=== PATIENT | male | born 1955 | race Caucasian/White ===

== ENCOUNTER 2017-11-27 07:54 | Day surgery (SDC) | payer MEDICAID, OTHER ==
--- NOTE | 2017-11-27 07:37 | PDHPUP ---
History & Physical Update H&P update statement: This history and physical update is based on an assessment of the patient which was completed after admission or registration (within 24 hours), but prior to the surgery/procedure. H&P update: H&P reviewed & patient examined, no change in patient's condition since H&P completed
[2017-11-27] MEDS ORDERED: ceFAZolin 2 GM/DEXTROSE 100 ML IV ONE (08:07)
[2017-11-27] MEDS ORDERED: LR 1,000 ML IV ONE (08:08)
[2017-11-27] MEDS ORDERED: PROTAMINE SULFATE 50 MG/5 ML VIAL IVP ONE (08:25)
[2017-11-27] MEDS ORDERED: BUPIVACAINE 0.5% 30 ML SDV ONE (08:25)
[2017-11-27] MEDS ORDERED: PAPAVERINE HCL 60 MG/2 ML SDV ONE (08:25)
[2017-11-27] MEDS ORDERED: THROMBIN (BOVINE) 5,000 UNIT VIAL TP ONE (08:27)
[2017-11-27] MEDS ORDERED: THROMBIN (BOVINE) 20,000 UNIT SPRAY TP ONE (08:27)
[2017-11-27] MEDS ORDERED: NS 1,000 ML IV ONE (08:54)
[2017-11-27] MEDS ORDERED: fentaNYL 250 MCG/5 ML INJ ONE (08:55)
[2017-11-27] MEDS ORDERED: PROPOFOL 200 MG/20 ML VIAL ONE (08:55)
[2017-11-27] MEDS ORDERED: ROCURONIUM 50 MG/5 ML VIAL ONE (08:56)
[2017-11-27] MEDS ORDERED: METOCLOPRAMIDE 10 MG/2 ML VIAL ONE (08:56)
[2017-11-27] MEDS ORDERED: LIDOCAINE 2% 100 MG/5 ML SYR ONE (08:56)
[2017-11-27] MEDS ORDERED: RANITIDINE 50 MG/2 ML VIAL ONE (08:56)
--- NOTE | 2017-11-27 08:57 | PDANEPAE ---
ANE Past Medical History - Cardiovascular History Hx Hypertension: Yes Hx Arrhythmias: No Hx Chest Pain: Yes Hx Coronary Artery / Peripheral Vascular Disease: Yes Hx CHF / Valvular Disease: Yes Hx Palpitations: No Cardiovascular History Comment: [place] x 3 - Pulmonary History Hx COPD: No Hx Asthma/Reactive Airway Disease: No Hx Recent Upper Respiratory Infection: No Hx Oxygen in Use at Home: No Hx Sleep Apnea: No - Neurologic History Hx Cerebrovascular Accident: No Hx Seizures: No Hx Dementia: No - Endocrine History Hx Diabetes: No - Renal History Hx Renal Disorders: Yes Renal History Comment: Renal Failure - Liver History Hx Hepatic Disorders: No - Neurological & Psychiatric Hx Hx Neurological and Psychiatric Disorders: Yes Neurological / Psychiatric History Comment: Depression - Cancer History Hx Cancer: Yes Cancer History Comment: Melanoma mole on back - Congenital Disorder History Hx Congenital Disorders: No - GI History Hx Gastrointestinal Disorders: No - Other Health History Other Health History: BPH - Chronic Pain History Chronic Pain: Yes - Surgical History Prior Surgeries: stent placement x 5 - 6 months ago. appendectomy. left wrist. right rotator cuff. hernia repair. cataract surgery ANE Review of Systems Review of Systems: - Exercise capacity METS (RN): 3 METS ANE Patient History - Allergies Allergies/Adverse Reactions: Sulfa (Sulfonamide Antibiotics) Allergy (Verified 11/27/17 08:46) Rash - Home Medications Home Medications: Aspirin 11/27/17 [Last Taken 11/26/17] Atorvastatin Calcium 11/27/17 [Last Taken 11/26/17] Bumex (*) 11/27/17 [Last Taken Unknown] Calcium Carbonate 11/27/17 [Last Taken 3 Months Ago ~08/27/17] Cholecalciferol (Vitamin D3) 11/27/17 [Last Taken 11/26/17] Gabapentin 11/27/17 [Last Taken 11/26/17] Lexapro 11/27/17 [Last Taken 11/26/17] Lisinopril 11/27/17 [Last Taken Unknown] Metolazone 11/27/17 [Last Taken 11/26/17] Nitroglycerin 11/27/17 [Last Taken 3 Months Ago ~08/27/17] Pepcid 11/27/17 [Last Taken 2 Months Ago ~09/26/17] Plavix 11/27/17 [Last Taken 11/26/17] Toprol Xl 11/27/17 [Last Taken Unknown] traMADol 11/27/17 [Last Taken 2 Weeks Ago ~11/13/17] - NPO status NPO Since - Liquids (Date): 11/26/17 NPO Since - Liquids (Time): 21:00 NPO Since - Solids (Date): 11/26/17 NPO Since - Solids (Time): 19:00 - Smoking Hx Smoking Status: Current some day smoker - Family Anes Hx Family Hx Anesthesia Complications: none. ANE Labs/Vital Signs - Labs Result Diagrams: 11/27/17 08:35 - Vital Signs Blood Pressure: 181/80 Heart Rate: 75 Respiratory Rate: 18 O2 Sat (%): 96 Height: 172.72 cm Weight: 92.986 kg ANE Physical Exam - Airway Neck exam: decreased ROM Mallampati Score: Class 3 Mouth exam: poor dentition - Pulmonary Pulmonary: no respiratory distress - Cardiovascular Cardiovascular: regular rate and rhythym - ASA Status ASA Status: III ANE Anesthesia Plan Anesthesia Plan: general endotracheal anesthesia
[2017-11-27] MEDS ORDERED: NALOXONE HCL 0.4 MG/ML INJ IVP PRN (09:30)
[2017-11-27] MEDS ORDERED: fentaNYL 100 MCG/2 ML INJ IVP PRN (09:30)
[2017-11-27] MEDS ORDERED: ALBUTEROL 3 ML DEYVIAL IH PRN (09:30)
[2017-11-27] MEDS ORDERED: ONDANSETRON 4 MG/2 ML VIAL IVP PRN (09:30)
[2017-11-27] MEDS ORDERED: SUGAMMADEX SODIUM 200 MG/2 ML VIAL IVP ONE (10:10)
--- NOTE | 2017-11-27 10:27 | POSTOPPROG ---
Post Op Note Date of Operation: 11/27/17 Surgeon: Rubén Schmitt Needle Punch Operator: Yanna Cardenas Anesthesiologist: Eddie Martinez Anesthesia: GET(General Endotracheal) Pre-op Diagnosis: Renal failure, on HD Post-op Diagnosis: same Procedure: LUE brachiocephalic AVF Findings: good thrill Inf/Abcess present in the surg proc area at time of surgery?: No EBL: Minimal Complications: none
--- NOTE | 2017-11-27 10:28 | POSTANESTH ---
Post Anesthetic Evaluation Cardiovascular Status: Similar to Pre-Op Cond Respiratory Status: Similar to Pre-op Cond. Level of Consciousness/Mental Status: Mildly Sleepy, Arousable Pain Control: Adequate, Prn Tx Ordered Nausea/Vomiting Control: Adequate, Prn Tx Ordered Complications Possibly Related to Anesthesia: None Noted
[2017-11-27 13:13] VITALS: BP 138/65
== END 2017-11-27 13:04 | disposition home or self-care (01) ==
LOC: FSGY 07:54
PROVIDERS: ATTEND Surgery
PROC: 03180ZF Bypass Left Brachial Artery to Lower Arm Vein, Open Approach (ICD-10-PCS; principal; 2017-11-27 09:15)
DX: N18.6 End stage renal disease (principal); Z99.2 Dependence on renal dialysis; I25.10 Atherosclerotic heart disease of native coronary artery without angina pectoris; I25.2 Old myocardial infarction; Z95.5 Presence of coronary angioplasty implant and graft; I12.0 Hypertensive chronic kidney disease with stage 5 chronic kidney disease or end stage renal disease; Z85.820 Personal history of malignant melanoma of skin
CPT/HCPCS: J0690; J1644; J2001; J2440; J2704; J2720; J2765; J2780; J3010

== ENCOUNTER → 2018-04-01 | Outpatient (CLI) | payer MEDICAID | LOC: FIMAGING 12:10 | PROVIDERS: ATTEND Surgery | DX: N18.6 End stage renal disease (principal) ==

== ENCOUNTER 2018-04-02 10:30 | Day surgery (SDC) | payer MEDICAID ==
[2018-04-02] MEDS ORDERED: ceFAZolin 2 GM/DEXTROSE 100 ML IV ONE (11:05)
[2018-04-02] MEDS ORDERED: NS 500 ML IV ONE (11:07)
[2018-04-02 11:24] VITALS: BP 127/55
--- NOTE | 2018-04-02 13:40 | PDHPUP ---
History & Physical Update H&P update statement: This history and physical update is based on an assessment of the patient which was completed after admission or registration (within 24 hours), but prior to the surgery/procedure. 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 Patient has not had HD for 1-2 weeks and refused HD last night, despite nephrology's willingness to make space for him and both of our urging to under go HD. We andrei BMP on 04/01/18. K was wnl. He may be holding some fluid, but labs are ok. Also, patient had US vein mapping of BLEs and has adequate GSV's for DRIL.
[2018-04-02] MEDS ORDERED: PAPAVERINE HCL 60 MG/2 ML SDV ONE (13:53)
[2018-04-02] MEDS ORDERED: THROMBIN (BOVINE) 5,000 UNIT VIAL TP ONE (13:54)
[2018-04-02] MEDS ORDERED: THROMBIN (BOVINE) 20,000 UNIT SPRAY TP ONE ×2 (13:55→14:36)
[2018-04-02] MEDS ORDERED: PROTAMINE SULFATE 50 MG/5 ML VIAL IVP ONE (13:55)
[2018-04-02] MEDS ORDERED: BUPIVACAINE 0.5% 30 ML SDV ONE (13:55)
[2018-04-02] MEDS ORDERED: PROPOFOL 200 MG/20 ML VIAL ONE (14:10)
[2018-04-02] MEDS ORDERED: fentaNYL 100 MCG/2 ML INJ ONE (14:11)
[2018-04-02] MEDS ORDERED: CISATRACURIUM BESYLATE 20 MG/10 ML VIAL IV ONE (14:12)
--- NOTE | 2018-04-02 14:18 | PDANEPAE ---
ANE Past Medical History - Cardiovascular History Hx Hypertension: Yes Hx Arrhythmias: No Hx Chest Pain: Yes Hx Coronary Artery / Peripheral Vascular Disease: Yes Hx CHF / Valvular Disease: Yes Hx Palpitations: No Cardiovascular History Comment: [place] x 3. CABG 2017 - Pulmonary History Hx COPD: No Hx Asthma/Reactive Airway Disease: No Hx Recent Upper Respiratory Infection: No Hx Oxygen in Use at Home: No Hx Sleep Apnea: No Sleep Apnea Screening Result - Last Documented: Positive - Neurologic History Hx Cerebrovascular Accident: No Hx Seizures: No Hx Dementia: No - Endocrine History Hx Diabetes: No - Renal History Hx Renal Disorders: Yes Renal History Comment: Renal Failure. DIALYSIS LD. 03/18/18 - Liver History Hx Hepatic Disorders: No - Neurological & Psychiatric Hx Hx Neurological and Psychiatric Disorders: Yes Neurological / Psychiatric History Comment: Depression - Cancer History Hx Cancer: Yes Cancer History Comment: Melanoma mole on back - Congenital Disorder History Hx Congenital Disorders: No - GI History Hx Gastrointestinal Disorders: No - Other Health History Other Health History: BPH - Chronic Pain History Chronic Pain: Yes - Surgical History Prior Surgeries: CABG - 02/2017. AV FISTULA 06/2017. stent placement. appendectomy. left wrist. right rotator cuff. hernia repair. cataract surgery ANE Review of Systems Review of Systems: - Exercise capacity METS (RN): 4 METS ANE Patient History - Allergies Allergies/Adverse Reactions: Sulfa (Sulfonamide Antibiotics) Allergy (Verified 11/27/17 08:46) Rash - Home Medications Home Medications: Aspirin [Aspirin 325 mg (*)] 325 mg PO DAILY 03/28/18 [Last Taken 03/27/18] Atorvastatin Calcium [Lipitor 40 mg (*)] 40 mg PO HS 03/28/18 [Last Taken 1 Day Ago ~04/01/18] Bumetanide [Bumex (*)] 1 mg PO DAILY 03/28/18 [Last Taken 03/27/18] Calcium Carbonate [Tums 500MG (*)] 500 mg PO Q8H 03/28/18 [Last Taken 03/27/18] Cholecalciferol Vit D3 [Vitamin D3 (*)] 4,000 units PO DAILY 03/28/18 [Last Taken 03/27/18] Clopidogrel Bisulfate [Plavix (*)] 75 mg PO DAILY 03/28/18 [Last Taken 03/27/18] Escitalopram Oxalate [Lexapro] 10 mg PO DAILY 03/28/18 [Last Taken 04/02/18] Famotidine [Pepcid 20 MG (*)] 20 mg PO DAILY 03/28/18 [Last Taken 04/02/18] Gabapentin [Neurontin 100 MG (*)] 100 mg PO DAILY 03/28/18 [Last Taken 1 Day Ago ~04/01/18] Gabapentin [Neurontin 300 MG (*)] 300 mg PO HS 03/28/18 [Last Taken 1 Day Ago ~ 04/01/18] Hydrocodone/APAP 5/325 [[place] 5/325 (*)] 1 tab PO Q6H PRN 03/28/18 [Last Taken 03/27/18] Lisinopril [Zestril 5 mg (*)] 5 mg PO DAILY 03/28/18 [Last Taken 04/02/18] Metolazone 5 mg PO SA 03/28/18 [Last Taken 03/27/18] Metoprolol Succinate Xr [Toprol Xl 25 mg (*)] 12.5 mg PO BID 03/28/18 [Last Taken 03/27/18] NIFEdipine [Procardia Xl] 30 mg PO DAILY 03/28/18 [Last Taken 03/27/18] Nitroglycerin [Nitrostat 0.4 mg (*)] 0.4 mg SL Q5M PRN 03/28/18 [Last Taken ] guaiFENesin [Mucinex 600 MG (*)] 600 mg PO BID PRN 03/28/18 [Last Taken 04/02/18 ] guaiFENesin/DEXTROMETHORPHAN [Robitussin Dm Oral Liquid (*)] 10 ml PO Q4 PRN [Last Taken 04/02/18] oxyCODONE IR [Oxycodone Ir (*)] 5 mg PO Q6H PRN 03/28/18 [Last Taken 04/02/18] traMADol [Ultram 50 mg (*)] 50 mg PO Q12H PRN 03/28/18 [Last Taken 04/02/18] - NPO status NPO Since - Liquids (Date): 04/02/18 NPO Since - Liquids (Time): 08:00 NPO Since - Solids (Date): 04/01/18 NPO Since - Solids (Time): 22:00 - Smoking Hx Smoking Status: Current some day smoker - Family Anes Hx Family Hx Anesthesia Complications: none. ANE Labs/Vital Signs - Labs Result Diagrams: 04/02/18 14:00 - Vital Signs Blood Pressure: 127/55 Heart Rate: 81 Respiratory Rate: 20 O2 Sat (%): 91 Height: 172.72 cm Weight: 102.058 kg ANE Physical Exam - Airway Neck exam: FROM Mallampati Score: Class 2 Mouth exam: poor dentition - Pulmonary Pulmonary: clear to auscultation - Cardiovascular Cardiovascular: regular rate and rhythym - ASA Status ASA Status: IV ANE Anesthesia Plan Anesthesia Plan: general endotracheal anesthesia
[2018-04-02] MEDS ORDERED: METOPROLOL TARTRATE 25 MG TAB PO ONE ×2 (14:36→15:30)
[2018-04-02] MEDS ORDERED: ASPIRIN 81 MG CHEWABLE TAB PO ONE (14:43)
[2018-04-02] MEDS ORDERED: CLOPIDOGREL BISULFATE 75 MG TAB PO SCH (14:45)
== END 2018-04-02 17:00 | disposition home or self-care (01) ==
LOC: UNDOADMOB 10:30 → F3N 10:30 → FSGY 10:30 → EDSTATUS 12:45 → FSGY 17:00 → UNDODISOB 17:00
PROVIDERS: ATTEND Surgery
DX: T82.898A Other specified complication of vascular prosthetic devices, implants and grafts, initial encounter (principal); N18.6 End stage renal disease; Z91.15 Patient's noncompliance with renal dialysis; I13.2 Hypertensive heart and chronic kidney disease with heart failure and with stage 5 chronic kidney disease, or end stage renal disease; I25.2 Old myocardial infarction; I50.9 Heart failure, unspecified; I25.10 Atherosclerotic heart disease of native coronary artery without angina pectoris; I25.82 Chronic total occlusion of coronary artery; Z85.820 Personal history of malignant melanoma of skin; Z99.2 Dependence on renal dialysis; Z53.29 Procedure and treatment not carried out because of patient's decision for other reasons
CPT/HCPCS: J0690; J1644; J2440; J2704; J2720; J3010

== ENCOUNTER 2018-05-16 12:30 | Inpatient (IN) | payer MEDICAID ==
[2018-05-17] MEDS ORDERED: LR 1,000 ML IV ONE (12:13)
[2018-05-17] MEDS ORDERED: ceFAZolin 2 GM/DEXTROSE 100 ML IV ONE (13:00)
--- NOTE | 2018-05-17 13:10 | PDGENHP ---
History & Physical Chief Complaint: Steal syndrome, Left upper extremity History of Present Illness: Fredo is a 63 y/o M s/p LUE AVF creation in November of 2017. Over the last 2-3 months, he has experienced increased pain in his left arm and hand. He has been using a neck catheter for dialysis. He was scheduled for a DRIL procedure last month, however his case was canceled due to aggressive and inappropriate behavior. Pertinent Past, Social, Family History: Medical history: Acute [place], Heart failure , HTN, ESRD. Surgical history: Eye surgery, LUE AVF, neck catheter placement. Social history: current smoker. Family history: noncontributory Relevant Physical Exam: General: chronically ill appearing male in no acute distress. HEENT: normocephalic, atraumatic, no gross hearing deficits, mmm, PERRLA. Cardiac: RRR. Chest: CTAB. Abdomen: soft, nontender, nondistended. Neurologic: CN 2-12 grossly intact. Psychiatric: appropriate mood and affect. Left upper extremity: AVF with excellent thrill. Diffuse swelling throughout arm, faint radial pulse. Tender to palpation. Cardiorespiratory Assessment: Cardiac: RRR. Chest: CTAB
[2018-05-17] MEDS ORDERED: NS 1,000 ML IV ONE (13:19)
--- NOTE | 2018-05-17 13:21 | PDANEPAE ---
ANE History of Present Illness steal syndrome left hand ANE Past Medical History - Cardiovascular History Hx Hypertension: Yes Hx Arrhythmias: No Hx Chest Pain: Yes Hx Coronary Artery / Peripheral Vascular Disease: Yes Hx CHF / Valvular Disease: Yes Hx Palpitations: No Cardiovascular History Comment: [place] x 3 - Pulmonary History Hx COPD: No Hx Asthma/Reactive Airway Disease: No Hx Recent Upper Respiratory Infection: No Hx Oxygen in Use at Home: No Hx Sleep Apnea: No - Neurologic History Hx Cerebrovascular Accident: No Hx Seizures: No Hx Dementia: No - Endocrine History Hx Diabetes: No Hypothyroid: No Hyperthyroid: No Obesity: mild - Renal History Hx Renal Disorders: Yes Renal History Comment: Renal Failure - Liver History Hx Hepatic Disorders: No - Neurological & Psychiatric Hx Hx Neurological and Psychiatric Disorders: Yes Neurological / Psychiatric History Comment: Depression - Cancer History Hx Cancer: Yes Cancer History Comment: Melanoma mole on back - Congenital Disorder History Hx Congenital Disorders: No - GI History GERD: no Hx Gastrointestinal Disorders: No - Other Health History Other Health History: BPH - Chronic Pain History Chronic Pain: Yes - Surgical History Prior Surgeries: stent placement x 5 - 6 months ago. appendectomy. left wrist. right rotator cuff. hernia repair. cataract surgery ANE Review of Systems Review of systems is: negative Review of Systems: - Exercise capacity METS (RN): 2 METS ANE Patient History - Allergies Allergies/Adverse Reactions: Sulfa (Sulfonamide Antibiotics) Allergy (Verified 11/27/17 08:46) Rash - Home Medications Home Medications: Aspirin [Aspirin 325 mg (*)] 325 mg PO DAILY 03/28/18 [Last Taken 03/27/18] Atorvastatin Calcium [Lipitor 40 mg (*)] 40 mg PO HS 03/28/18 [Last Taken 1 Day Ago ~04/01/18] Bumetanide [Bumex (*)] 1 mg PO DAILY 03/28/18 [Last Taken 03/27/18] Calcium Carbonate [Tums 500MG (*)] 500 mg PO Q8H 03/28/18 [Last Taken 03/27/18] Cholecalciferol Vit D3 [Vitamin D3 (*)] 4,000 units PO DAILY 03/28/18 [Last Taken 03/27/18] Clopidogrel Bisulfate [Plavix (*)] 75 mg PO DAILY 03/28/18 [Last Taken 03/27/18] Escitalopram Oxalate [Lexapro] 10 mg PO DAILY 03/28/18 [Last Taken 04/02/18] Famotidine [Pepcid 20 MG (*)] 20 mg PO DAILY 03/28/18 [Last Taken 04/02/18] Gabapentin [Neurontin 100 MG (*)] 100 mg PO DAILY 03/28/18 [Last Taken 1 Day Ago ~04/01/18] Gabapentin [Neurontin 300 MG (*)] 300 mg PO HS 03/28/18 [Last Taken 1 Day Ago ~ 04/01/18] Hydrocodone/APAP 5/325 [[place] 5/325 (*)] 1 tab PO Q6H PRN 03/28/18 [Last Taken 03/27/18] Lisinopril [Zestril 5 mg (*)] 5 mg PO DAILY 03/28/18 [Last Taken 04/02/18] Metolazone 5 mg PO SA 03/28/18 [Last Taken 03/27/18] Metoprolol Succinate Xr [Toprol Xl 25 mg (*)] 12.5 mg PO BID 03/28/18 [Last Taken 03/27/18] NIFEdipine [Procardia Xl] 30 mg PO DAILY 03/28/18 [Last Taken 03/27/18] Nitroglycerin [Nitrostat 0.4 mg (*)] 0.4 mg SL Q5M PRN 03/28/18 [Last Taken ] guaiFENesin [Mucinex 600 MG (*)] 600 mg PO BID PRN 03/28/18 [Last Taken 04/02/18 ] guaiFENesin/DEXTROMETHORPHAN [Robitussin Dm Oral Liquid (*)] 10 ml PO Q4 PRN [Last Taken 04/02/18] oxyCODONE IR [Oxycodone Ir (*)] 5 mg PO Q6H PRN 03/28/18 [Last Taken 04/02/18] traMADol [Ultram 50 mg (*)] 50 mg PO Q12H PRN 03/28/18 [Last Taken 04/02/18] - NPO status NPO Since - Liquids (Date): 05/17/18 NPO Since - Liquids (Time): 09:00 NPO Since - Solids (Date): 05/16/18 NPO Since - Solids (Time): 23:55 - Anes Hx Anes Hx: no prior problems - Smoking Hx Smoking Status: Current some day smoker - Family Anes Hx Family Anes Hx: none Family Hx Anesthesia Complications: none. ANE Labs/Vital Signs - Labs Result Diagrams: 05/17/18 12:45 05/17/18 12:45 - Vital Signs Blood Pressure: 137/57 Heart Rate: 63 Respiratory Rate: 16 O2 Sat (%): 91 Height: 172.72 cm Weight: 98.43 kg ANE Physical Exam - Airway Neck exam: FROM Mallampati Score: Class 2 Mouth exam: normal dental/mouth exam - Pulmonary Pulmonary: no respiratory distress, clear to auscultation - Cardiovascular Cardiovascular: regular rate and rhythym, no murmur, rub, or gallop - ASA Status ASA Status: IV ANE Anesthesia Plan Anesthesia Plan: general endotracheal anesthesia, GA w LMA, GA with mask
[2018-05-17] MEDS ORDERED: THROMBIN (BOVINE) 20,000 UNIT VIAL TP ONE (13:42)
[2018-05-17] MEDS ORDERED: BUPIVACAINE 0.5% 30 ML SDV ONE (13:43)
[2018-05-17] MEDS ORDERED: THROMBIN (BOVINE) 5,000 UNIT VIAL TP ONE (13:43)
[2018-05-17] MEDS ORDERED: PAPAVERINE HCL 60 MG/2 ML SDV ONE (13:43)
[2018-05-17] MEDS ORDERED: PROTAMINE SULFATE 50 MG/5 ML VIAL IVP ONE (13:43)
[2018-05-17] MEDS ORDERED: fentaNYL 100 MCG/2 ML INJ ONE ×3 (13:50→16:35)
[2018-05-17] MEDS ORDERED: PROPOFOL 200 MG/20 ML VIAL ONE (13:51)
[2018-05-17 14:32] LABS: PLATELET COUNT 294 10^3/uL (150-400)
[2018-05-17] MEDS ORDERED: HYDROmorphONE/DILAUDID 2 MG/ML INJ IVP PRN (14:56)
[2018-05-17] MEDS ORDERED: NALOXONE HCL 0.4 MG/ML INJ IVP PRN (14:56)
--- NOTE | 2018-05-17 14:57 | POSTANESTH ---
Post Anesthetic Evaluation Cardiovascular Status: Normal, Stable Respiratory Status: Normal, Stable Level of Consciousness/Mental Status: Can Participate in Eval Pain Control: Adequate, Prn Tx Ordered Nausea/Vomiting Control: Adequate, Prn Tx Ordered Complications Possibly Related to Anesthesia: None Noted
[2018-05-17] MEDS ORDERED: ONDANSETRON 4 MG/2 ML VIAL ONE (14:59)
--- NOTE | 2018-05-17 15:29 | POSTOPPROG ---
Post Op Note Date of Operation: 05/17/18 Surgeon: Rubén Schmitt Health Service Worker: Juana Anesthesia: GET(General Endotracheal) Pre-op Diagnosis: Steal syndrome Post-op Diagnosis: same Indication: Same, pain Procedure: LUE AVF banding, collateral ligation Findings: +radial pulse, strong thrill Inf/Abcess present in the surg proc area at time of surgery?: No Depth: Superfical (Skin SQ) EBL: Minimal
[2018-05-17] MEDS: fentaNYL 100 MCG/2 ML INJ IVP PRN ×4 (15:33→16:50)
[2018-05-17] MEDS ORDERED: oxyCODONE IR 5 MG TAB PO PRN (15:47)
[2018-05-17] MEDS ORDERED: ONDANSETRON DISINTEGRATING 4 MG TAB PO PRN ×2 (15:48→17:26)
[2018-05-17] MEDS ORDERED: ACETAMINOPHEN 325 MG TAB PO PRN ×2 (15:48→17:26)
[2018-05-17] MEDS ORDERED: HYDROmorphONE/DILAUDID 1 MG/ML INJ IVP PRN (17:26)
[2018-05-17] MEDS ORDERED: ONDANSETRON 4 MG/2 ML VIAL IVP PRN (17:26)
--- NOTE | 2018-05-17 17:56 | GHP ---
[f rep st] HISTORY AND PHYSICAL DATE OF ADMISSION: 05/17/2018 Mr. Tidwell is a 63-year-old gentleman with a history of end-stage renal disease and coronary artery d isease who presents today for an elective revision of his fistula for steal syndrome. He has some no nhealing wounds on his 1st and 2nd fingers of his left hand. His previous surgery was canceled becau se of some inappropriate contact on his part back in March. When I speak to the patient, he is postop, not particularly interested in giving me information, but after a bit of time, admitted pain is reasonably well controlled. His radial pulse is Dopplerable on his left hand. He acknowledges that it sounds like the doctors are uncertain as to why he has end-s tage renal disease. REVIEW OF SYSTEMS: Complete 10-point review of systems conducted and negative except as noted in the HPI. PAST MEDICAL HISTORY: Coronary artery disease and stents, end-stage renal disease. ALLERGIES: Sulfa. HOME MEDICATIONS: 1. Aspirin. 2. Atorvastatin. 3. Bumex. 4. Calcium carbonate. 5. Vitamin D3. 6. Clopidogrel. 7. Escitalopram. 8. Famotidine. 9. Gabapentin. 10. Guaifenesin. 11. Hydrocodone. 12. Lisinopril. 13. Metolazone. 14. Toprol-XL. 15. Nifedipine. 16. Nitroglycerin. 17. Oxycodone. 18. Tramadol. SOCIAL HISTORY: He smokes cigarettes, does not drink alcohol. Lives in [place]. Declines to tell me what he did for work. FAMILY HISTORY: Reviewed and unremarkable. PHYSICAL EXAM: VITAL SIGNS: Temp afebrile, blood pressure 124/46, pulse 66, breathing 14 times a mi nute, 82% on room air, refuses to wear oxygen. GENERAL: No acute distress. HEENT: There is some d ried blood in his oropharynx. Mucous membranes are moist. NECK: Supple without lymphadenopathy or JVD. LUNGS: Clear to auscultation bilaterally. Prolonged expiratory phase. HEART: S1, S2, withou t murmurs. ABDOMEN: Soft, nontender, nondistended. LOWER EXTREMITIES: Without edema. UPPER EXTRE MITIES: His left upper extremity has Dopplerable pulse. He has some chronic-appearing wounds over h is fingers. NEUROLOGIC: Nonfocal. LABS: White count 10.3, hematocrit 35, platelets 294,000. Sodium 137, potassium 4.4, chloride 101, bicarb 24, BUN 39, creatinine 4.0, glucose 102. LFTs normal. Discussed the case with Dr. Glenna Parmar of Nephrology. ASSESSMENT/PLAN: A 63-year-old gentleman postop day 0 from a fistula revision for steal syndrome. 1. Steal syndrome. He has a radial pulse. Will see the outcome and the expectation if this surgery is a success if these wounds heal. 2. End-stage renal disease. He will receive dialysis tomorrow and then resume his regular schedule on Sunday. 3. Coronary artery disease. We will restart his medications and they have been reconciled. He is n ot actively ischemic. 4. Pain. I have written him for IV Dilaudid, IV morphine. 5. Hypoxia. The patient has a long smoking history. It sounds like a confrontational personality, he is currently refusing to wear oxygen, which is okay, and really only to his own detriment. DISPOSITION: Inpatient status. /[id number]/MODL
[2018-05-17] MEDS ORDERED: NICOTINE POLACRILEX 2 MG GUM B PRN (20:05)
[2018-05-17] MEDS: NICOTINE 21 MG/24 HR PATCH TD SCH (20:57)
[2018-05-17] MEDS: LORazepam 1 MG TAB PO PRN (20:58)
[2018-05-17] MEDS: HEPARIN 5,000 UNIT/0.5 ML INJ SC SCH (22:27)
[2018-05-18] MEDS: LORazepam 1 MG TAB PO PRN ×2 (05:21→19:17)
[2018-05-18] MEDS: HEPARIN 5,000 UNIT/0.5 ML INJ SC SCH ×4 (05:21→23:50)
[2018-05-18] MEDS: oxyCODONE IR 5 MG TAB PO PRN ×4 (05:22→19:17)
[2018-05-18 05:35] LABS: PLATELET COUNT 288 10^3/uL (150-400)
[2018-05-18 05:43] LABS: INR 1.19 (0.83-1.16); PROTIME(PATIENT) 14.6 SEC (12.0-15.0)
[2018-05-18] MEDS: NICOTINE 21 MG/24 HR PATCH TD SCH (10:41)
--- NOTE | 2018-05-18 13:22 | ASMTCMCOM ---
CM Note CM Note Notes: Reviewed chart. Pt admitted for an elective AV fistula revision secondary to Steal Syndrome. History includes ESRD with dialysis, AV fistula, CAD with prior stenting, acute OR, CHF, HTN, current smoker, nonhealing wounds to his fingers on the left hand. Pt is single and lives in [place]. Pt to undergo dialysis today and to resume his normal dialysis schedule starting on Sunday05/20/18. Discharge needs remain unclear at this time. No PT/OT evals pending. Anticipate pt will likely discharge home independently when medically stable. CM will continue to follow for any potential needs. Discharge Plan: To be determined, likely independent Date Signed: 05/18/2018 01:21 PM Electronically Signed By:Mila Uriostegui RN
--- NOTE | 2018-05-18 13:45 | ASMTCMCOM ---
CM Note CM Note Notes: Per RN, pt lives in [facility] in [place] and is here for scheduled surgery. DC Plan: [place] Date Signed: 05/18/2018 01:44 PM Electronically Signed By:Brea Petersen RN
--- NOTE | 2018-05-18 18:28 | SOAPPROG ---
JENNI Progress Note Assessment/Plan: Assessment/Plan: 63 yo M with challenging personality, ESRD on MWF non-compliant with outpatient dialysis, and steal syndrome of his L hand from his AVF (has been unwilling/ unable due to behavioral issues to have AVF revision for months) transferred from [facility] for AVF revision. # ESRD --HD on 05/18 (came off early due to behavioral issues) with plans to get back on regular MWF on 05/20 # Steal syndrome-- s/p AVF revision on 05/17 --wound care as patient willing # Anemia- Hgb at goal at 10.3 # Hyperkalemia- at goal, continue to modulate with HD Subjective: HD today, came off 1 hr early per patient request. Patient reports no change in his hand after surgery. Continues to have significant pain. Objective: Vital Signs Temp Pulse Resp BP Pulse Ox 36.7 C 88 18 104/61 93 05/18/18 16:00 05/18/18 16:00 05/18/18 16:00 05/18/18 16:00 05/18/18 16:00 Laboratory Results 05/18/18 05:09 05/18/18 05:09 05/17/18 05/18/18 05/19/18 05:59 05:59 05:59 Intake Total 650 400 Balance 650 400 PT 14.6 SEC (12.0-15.0) 05/18/18 05:09 INR 1.19 (0.83-1.16) H 05/18/18 05:09 Exam- General- awake, alert, chronically ill-appearing, walking around Eyes- anicteric sclera Neck- RIJ tunneled catheter HEENT- MMM CV- + murmur, normal rate, regular rhythm Pulm- CTAB, breathing comfortably on RA Extrem- LUE AVF with incision c/d/i, ischemic lesions on fingers ICD10 Worksheet Patient Problems: Problems Problem Status Onset End stage renal disease Acute - ICD10 Problem Qualifiers (1) End stage renal disease
[2018-05-18] MEDS ORDERED: BENZONATATE 100 MG CAP PO PRN (20:07)
[2018-05-18] MEDS ORDERED: CEPACOL LOZENGE PO PRN (20:07)
[2018-05-18] MEDS: GUAIFENESIN/DM 10 ML UDCUP PO PRN (20:29)
[2018-05-18] MEDS ORDERED: HEPARIN 50,000 UNIT/10 ML VIAL ONE (20:34)
[2018-05-19] MEDS: NICOTINE 21 MG/24 HR PATCH TD SCH (09:15)
[2018-05-19] MEDS: HEPARIN 5,000 UNIT/0.5 ML INJ SC SCH ×3 (09:18→23:42)
--- NOTE | 2018-05-19 10:40 | PDMN ---
Medical Necessity Medical necessity: [id number] Renal Failure, Chronic, A-3 days: 63 yo here for sched dialysis fistula repair for steal syndrome. Pt w/ ESRD and will receive HD in hospital. Pt with wounds over fingers secondary to steal syndrome. Pt w/ hx of non-compliance, behavioral issues. Post op still with sig pain, WBC increasing during hospital stay, issues w/ hypoxia post op requiring O2. OT and wound consults. Pt will require >2MN for ongoing management and tx of the above.
[2018-05-19 12:58] LABS: PLATELET COUNT 295 10^3/uL (150-400)
--- NOTE | 2018-05-19 14:11 | HOSPPROG ---
Hospitalist Progress Note Assessment/Plan: 1. L arm steal syndrome, pod #1. -discussed care plan with Dr Kern -possible discharge tomorrow to [facility] in [place] -pain meds prn 2. ESRD, on chronic HD -had dialysis today but not normal amount due to some behavior concerns during dialysis per notes -appreciate nephrology assistance 3. CAD -home meds 4. TOB abuse/COPD -refuses O2 -has patch/gum 5. Unclear of his underlying behavior/psychiatric diagnosis -check paper chart for info from [facility] -only on escitalopram per med recs 6. Anemia, likely from ESRD -watch for stability DISPO- possible discharge in AM depending upon labs, post surgical eval DVT prophy PCP- lives at [facility] Subjective: Walking in the halls, refused to return to his room initially. Says arm hurts. - Time Spent With Patient Time Spent with Patient: greater than 25 minutes (total floor time) Time Spent with Patient: Greater than 25 minutes spent on this patients care, greater than 50% of time spent counseling, educating, and coordinating care regarding the above mentioned plan. - Physical Exam Constitutional: chronically ill appearing, unkempt Eyes: anicteric sclera Ears, Nose, Mouth, Throat: moist mucous membranes, hearing normal Cardiovascular: regular rate and rhythym, No edema Respiratory: no respiratory distress, no rales or rhonchi, clear to auscultation Skin: other (L hand-2nd and 3rd fingers with thick crusted wounds/dry gangrene, cyanotic appearing) Psychiatric: agitated (unsure his baseline ), No thought process linear ICD10 Worksheet Patient Problems: Problems Problem Status Onset End stage renal disease Acute
--- NOTE | 2018-05-19 14:42 | HOSPPROG ---
Hospitalist Progress Note Assessment/Plan: 1. L arm steal syndrome, pod #2. -discussed care plan with Dr Kern -elev WBC this AM, will repeat and check procalcitonin (difficult in setting of ESRD to interpret) -no other obvious signs of infection, no fever, surgery will check the wound/ fingers -will check a blood culture, hold off on abx for now -pain meds prn 2. ESRD, on chronic HD -had dialysis yesterday but not normal amount due to some behavior concerns during dialysis per notes -appreciate nephrology assistance 3. CAD -home meds 4. TOB abuse/COPD -refuses O2 -has patch/gum 5. Unclear of his underlying behavior/psychiatric diagnosis -check paper chart for info from [facility] or [facility] -only on escitalopram per med recs -I spoke with his daughter Eliza listed in demographics here as family contact , says her and her sister didn't know he was here 6. Anemia, likely from ESRD -stable DISPO > 2 mdnts because of increasing WBC, possible new infection/need for antibiotics DVT prophy- lovenox PCP- lives at [facility] Subjective: Less agitated today, nursing agrees. Says L hand hurts, but otw denies pain in abd/chest. Denies SOB. Objective: Vital Signs Temp Pulse Resp BP Pulse Ox 97.9 F 73 18 123/58 H 90 L 05/19/18 11:38 05/19/18 11:38 05/19/18 11:38 05/19/18 11:38 05/19/18 11:38 Laboratory Results 05/19/18 12:45 05/19/18 08:08 05/18/18 05/19/18 05/20/18 11:59 11:59 11:59 Intake Total 750 300 Balance 750 300 PT 14.6 SEC (12.0-15.0) 05/18/18 05:09 INR 1.19 (0.83-1.16) H 05/18/18 05:09 - Time Spent With Patient Time Spent with Patient: greater than 35 minutes (total floor time) Time Spent with Patient: Greater than 35 minutes spent on this patients care, greater than 50% of time spent counseling, educating, and coordinating care regarding the above mentioned plan. - Physical Exam Constitutional: chronically ill appearing, unkempt Eyes: anicteric sclera, EOMI Ears, Nose, Mouth, Throat: moist mucous membranes, hearing normal Cardiovascular: regular rate and rhythym, No edema Respiratory: no respiratory distress, no rales or rhonchi, rhonchi (-clear with deep breaths) Gastrointestinal: normoactive bowel sounds, soft, non-tender abdomen, no palpable masses, No guarding, No rebound, No distension Skin: other (L hand- same as yesterday, has refused wound care/cleaning of hand/ fingers, on a kpad- says helps with pain) Psychiatric: not anxious, poor insight ICD10 Worksheet Patient Problems: Problems Problem Status Onset End stage renal disease Acute
--- NOTE | 2018-05-19 16:48 | SOAPPROG ---
JENNI Progress Note Assessment/Plan: Assessment/Plan: 63 yo M with challenging personality, ESRD on MWF non-compliant with outpatient dialysis, and steal syndrome of his L hand from his AVF (has been unwilling/ unable due to behavioral issues to have AVF revision for months) transferred from [facility] for AVF revision. # ESRD --HD on 05/18 (came off early due to behavioral issues) with plans to get back on regular MWF on 05/20 --Planning for discharge back to [facility] on 05/20 after HD # Steal syndrome-- s/p AVF revision on 05/17 --wound care as patient willing # Anemia- Hgb at goal at 10.5 # Hyperkalemia- at goal, continue to modulate with HD Subjective: Pain about the same, maybe a little better today. Was hoping for discharge today but facility can't take him back today. Denies shortness of breath. Objective: Vital Signs Temp Pulse Resp BP Pulse Ox 36.7 C 71 18 135/59 H 90 L 05/19/18 15:35 05/19/18 15:35 05/19/18 15:35 05/19/18 15:35 05/19/18 15:35 Laboratory Results 05/19/18 12:45 05/19/18 08:08 05/18/18 05/19/18 05/20/18 05:59 05:59 05:59 Intake Total 650 400 100 Balance 650 400 100 PT 14.6 SEC (12.0-15.0) 05/18/18 05:09 INR 1.19 (0.83-1.16) H 05/18/18 05:09 General- awake, alert, chronically ill-appearing, lying in bed resting Eyes- anicteric sclera Neck- RIJ tunneled catheter HEENT- MMM CV- + murmur, normal rate, regular rhythm Pulm- CTAB in anterior lung melendez, breathing comfortably on RA Extrem- LUE AVF with incision c/d/i with good bruit and thrill, ischemic lesions on fingers, L hand warm ICD10 Worksheet Patient Problems: Problems Problem Status Onset End stage renal disease Acute - ICD10 Problem Qualifiers (1) End stage renal disease
[2018-05-19] MEDS: oxyCODONE IR 5 MG TAB PO PRN ×2 (19:33→23:37)
[2018-05-19] MEDS: LORazepam 1 MG TAB PO PRN (23:37)
[2018-05-20 05:34] LABS: PLATELET COUNT 310 10^3/uL (150-400)
[2018-05-20] MEDS: LORazepam 1 MG TAB PO PRN (07:37)
[2018-05-20] MEDS: oxyCODONE IR 5 MG TAB PO PRN (07:37)
[2018-05-20] MEDS: HEPARIN 5,000 UNIT/0.5 ML INJ SC SCH (07:38)
[2018-05-20] MEDS: NICOTINE 21 MG/24 HR PATCH TD SCH (07:38)
--- NOTE | 2018-05-20 09:23 | HOSPPROG ---
Hospitalist Progress Note Assessment/Plan: 1. L arm steal syndrome, pod #3. blood cx neg thus far fingers unchanged follow off abx 2. ESRD, on chronic HD hd today 3. CAD home meds 4. TOB abuse/COPD refuses O2 has patch/gum 5. 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 Anemia, likely from ESRD dc to snf today > 30 minutes Subjective: seen in HD. amenable to return to [facility]. afebrile Objective: Vital Signs Temp Pulse Resp BP Pulse Ox 36.4 C 79 16 105/44 L 91 L 05/20/18 07:30 05/20/18 07:30 05/20/18 07:30 05/20/18 07:30 05/20/18 07:30 Laboratory Results 05/20/18 04:38 05/20/18 04:38 05/19/18 05/20/18 05/21/18 05:59 05:59 05:59 Intake Total 400 100 Balance 400 100 PT 14.6 SEC (12.0-15.0) 05/18/18 05:09 INR 1.19 (0.83-1.16) H 05/18/18 05:09 - Physical Exam Constitutional: no apparent distress, appears nourished Eyes: PERRL, anicteric sclera Ears, Nose, Mouth, Throat: moist mucous membranes, hearing normal Cardiovascular: regular rate and rhythym, no murmur, rub, or gallop Respiratory: no respiratory distress, no rales or rhonchi Gastrointestinal: normoactive bowel sounds, soft, non-tender abdomen Genitourinary: No webster in urethra Skin: warm Musculoskeletal: other (fingers w chronic dry gangene w/out surounding cellulitis) Neurologic: AAOx3 ICD10 Worksheet Patient Problems: Problems Problem Status Onset End stage renal disease Acute
--- NOTE | 2018-05-20 09:25 | PDIAF ---
- Diagnosis Diagnosis: AVF arterial steal syndrome Code Status: Full Code - Medication Management Discharge Medications: electronically signed and located in the Home Medication List. - Orders Services needed: Registered Nurse, Certified Auxiliary Power Equipment Operator, [employer] , Physical Therapy, Occupational Therapy Isolation Type: None Diet Recommendation: potassium restricted, other Diet Texture: Regular Texture Diet Wound Care Instructions: follow wounds on left 1,2,3 fingers. should continue to improve - Follow Up Care Current Providers and Referrals: Patient,NotPresent [Primary Care Provider] -
[2018-05-20] MEDS: GUAIFENESIN/DM 10 ML UDCUP PO PRN (09:36)
--- NOTE | 2018-05-20 09:43 | GDS ---
[f rep st] DISCHARGE SUMMARY DISCHARGE DIAGNOSES: 1. Arterial steal syndrome from an AV fistula in the left hand. 2. End-stage renal disease. 3. Coronary disease, hypertension, tobacco use, personality with behavioral issues. Please see admission history and physical by Dr. Manish De Anda. The patient was admitted following surgery. Seen in the past the post anesthesia care unit. He is o bserved overnight. He had some difficulties getting restarted on dialysis because of behavior. ____ hand film done on the showing no evidence of osteomyelitis. He was discharged back to [facility]. he has been residing on an unchanged medication regimen. It is notable the patient is having some pain. He may need increased pain medicines. I will leave th is to the discretion of the [place] physician. /[id number]/MODL
--- NOTE | 2018-05-20 10:26 | SOAPPROG ---
SOAP Progress Note Assessment/Plan: Assessment/Plan: ESRD: Pt had been noncompliant with outpatient dialysis. - HD today. - Pt to continue HD on MWF schedule, has outpatient chair set up at [facility] for 4:40pm and can start there on Sunday. Anemia: Hgb at goal, no need for epo at this time. Pt will get epo and iron as needed per outpatient dialysis unit protocol. ISIAH: Phos at goal on no phos binder. Steal Syndrome: s/p AVF revision on 05/17. Subjective: No acute events overnight. Pt on HD this am and tolerating well. Objective: Vital Signs Temp Pulse Resp BP Pulse Ox 36.4 C 79 16 105/44 L 91 L 05/20/18 07:30 05/20/18 07:30 05/20/18 07:30 05/20/18 07:30 05/20/18 07:30 Laboratory Results 05/20/18 04:38 05/20/18 04:38 05/19/18 05/20/18 05/21/18 05:59 05:59 05:59 Intake Total 400 100 Balance 400 100 PT 14.6 SEC (12.0-15.0) 05/18/18 05:09 INR 1.19 (0.83-1.16) H 05/18/18 05:09 General: alert and oriented, no acute distress Eyes: EOMI, PERRL OP: Clear CV: RRR Resp: nonlabored respirations Abd: Soft, NT/ND Ext: no edema BLE Neuro: no asterixis Access: RIJ tunneled catheter ICD10 Worksheet Patient Problems: Problems Problem Status Onset End stage renal disease Acute
[2018-05-20 10:53] LABS: HEPATITIS B CORE AB IGM NEGATIVE (NEGATIVE); HEPATITIS B SURFACE ANTIGEN NEGATIVE (NEGATIVE)
[2018-05-20 11:01] VITALS: BP 142/64
[2018-05-20] MEDS ORDERED: HEPARIN 50,000 UNIT/10 ML VIAL ONE (14:00)
--- NOTE | 2018-05-20 14:44 | ASMTDCNOTE ---
Case Management Discharge Discharge Order Complete? Answers: Yes Patient to Obtain Answers: Other Notes: LTC Medications Transportation Arranged Answers: Other Notes: wheelchair van Faxed Final Orders Answers: Yes Agency/Facility Transfer Answers: Yes Report Printed & Faxed to Receiving Agency Family Notified Answers: No Discharge Comments Notes: Pt to discharge back to [place] where he resides. No further CM needs noted at this time. Date Signed: 05/20/2018 02:44 PM Electronically Signed By:Shaina Wang
--- NOTE | 2018-05-20 14:45 | ASDISCHSUM ---
Discharge Information Plan Status:SNF Medically Cleared to Leave:05/20/2018 Discharge Date:05/20/2018 02:25 PM CM D/C Disposition:[facility] Facility ADT D/C Disposition:[facility] Facility Projected Discharge Date:05/19/2018 11:00 AM Transportation at D/C:Wheelchair Van Discharge Delay Reason: Follow-Up Date:05/19/2018 11:00 AM Discharge Slot: Final Diagnosis:dialysis fistula repair Placement Information Referral Type:*Correction/SNF Referral ID:[facility]-[id number] Provider Name:[facility]/ [employer] Address 1:[address] Address 2: City:[place] Selection Factors: State:[place] Patient Contact Information Contact Name:ESPERANZA Relationship:Daughter Address:[address] City:[place] Alternate Phone: [facility]/Zip Code:[place] [address] Email: Financial Information Financial Class:Medicaid Primary Plan Desc:[employer] Primary Plan Number:[id number] Secondary Plan Desc: Secondary Plan Number: Assessment Information LACE LACE Length of stay for Answers: 3 days current admission Acuity / Level of Answers: Yes Care: Did the patient have an inpatient admission? Comorbidities - select Answers: Congestive heart failure all that apply Coronary Artery Disease Moderate or severe liver or renal disease Previous myocardial infarction Other Notes: HTN, ESRD, current smoker, nonhealing wounds, hypoxia # of Emergency department Answers: 1-2 visits in the last 6 months Score: 17 Date Signed: 05/20/2018 02:43 PM Electronically Signed By:Shaina Wang [facility] CM Progress Note CM Note CM Note Notes: Reviewed chart. Pt admitted for an elective AV fistula revision secondary to Steal Syndrome. History includes ESRD with dialysis, AV fistula, CAD with prior stenting, acute MN, CHF, HTN, current smoker, nonhealing wounds to his fingers on the left hand. Pt is single and lives in [place]. Pt to undergo dialysis today and to resume his normal dialysis schedule starting on Sunday05/20/18. Discharge needs remain unclear at this time. No PT/OT evals pending. Anticipate pt will likely discharge home independently when medically stable. CM will continue to follow for any potential needs. Discharge Plan: To be determined, likely independent Date Signed: 05/18/2018 01:21 PM Electronically Signed By:Mila Uriostegui RN [facility] CM Progress Note CM Note CM Note Notes: Per RN, pt lives in [facility] in [place] and is here for scheduled surgery. DC Plan: [facility] Date Signed: 05/18/2018 01:44 PM Electronically Signed By:Brea Petersen RN Case Management Discharge Plan Note Case Management Discharge Discharge Order Complete? Answers: Yes Patient to Obtain Answers: Other Notes: [facility] Medications Transportation Arranged Answers: Other Notes: wheelchair van Faxed Final Orders Answers: Yes Agency/Facility Transfer Answers: Yes Report Printed & Faxed to Receiving Agency Family Notified Answers: No Discharge Comments Notes: Pt to discharge back to [place] where he resides. No further CM needs noted at this time. Date Signed: 05/20/2018 02:44 PM Electronically Signed By:Shaina Wang Intervention Information
--- NOTE | 2018-05-24 16:23 | GOP ---
[f rep st] OPERATIVE REPORT DATE OF OPERATION: 05/17/2018 SURGEON: Rubén Schmitt MD TELEPHONE CLAIMS REPRESENTATIVE: Eden Yuan, nurse practitioner. ANESTHESIOLOGIST: Dr. Wing. PREOPERATIVE DIAGNOSIS: Probable steal syndrome, left hand. POSTOPERATIVE DIAGNOSIS: Probable steal syndrome, left hand. PROCEDURE PERFORMED: Left upper extremity arteriovenous fistula restrictive banding and ligation of collaterals. ULTRASOUND VEIN MAPPING LEFT ARM FINDINGS: Patient was found to have a positive radial pulse and a strong thrill in the bruit after completion of the procedure with a definitely improved radial artery pulse. ESTIMATED BLOOD LOSS: Negligible. DESCRIPTION OF PROCEDURE: The patient was taken to the operating room where he received a satisfactory general endotracheal anesthesia by Dr. Wing. He was placed in supine position with the left arm outstretched on arm board and prepped and draped in the usual sterile fashion. Using 0.5% Marcaine local infiltration, a transverse incision was made over the origin of the left brachial cephalic AV fistula. The cephalic vein portion was dissected free and encircled with vessel loops. The fistula itself was then restricted with interrupted 4-0 Prolene mattress sutures and then a second layer of a running 4- 0 Prolene suture constricting the flow down to 1/2 the diameter of the original fistula. This did make a palpable difference in the radial pulse at the wrist, although he did have a positive radial pulse prior to the procedure. Flow was maintained in the dialysis fistula. Hemostasis was assured. The wound was infiltrated with 0.5% Marcaine and then closed in layers using 3-0 Vicryl for the subcutaneous tissue and a 4-0 Monocryl subcuticular stitch for the skin. The wound was dressed with Dermabond. He tolerated the procedure well and was taken to the recovery room in good condition. /[id number]/MODL MTDD
== END 2018-05-20 14:25 | DRG 182 ==
LOC: F2W 05-17 12:26 → F3E 05-17 18:15
PROVIDERS: ADMIT Internal Medicine; ATTEND Internal Medicine
PROC: 05V Upper Veins, Restriction (ICD-10-PCS; principal; 2018-05-17 12:30)
DX: T82.898A Other specified complication of vascular prosthetic devices, implants and grafts, initial encounter (principal); I12.0 Hypertensive chronic kidney disease with stage 5 chronic kidney disease or end stage renal disease; N18.6 End stage renal disease; D63.1 Anemia in chronic kidney disease; R09.02 Hypoxemia; I25.10 Atherosclerotic heart disease of native coronary artery without angina pectoris; J44.9 Chronic obstructive pulmonary disease, unspecified; F60.9 Personality disorder, unspecified; I25.2 Old myocardial infarction; Z99.2 Dependence on renal dialysis; Z95.5 Presence of coronary angioplasty implant and graft
CPT/HCPCS: 86705-90; 97167-GO; J0690; J1170; J1644; J2405; J2440; J2704; J2720; J3010